=== PATIENT | male | born 1950 | race Caucasian/White ===

== ENCOUNTER 2022-11-23 08:32 | Outpatient (CLI) | payer MEDICARE | END 2022-11-23 08:33 | disposition home or self-care (01) | LOC: CSHMRI 08:32 | PROVIDERS: ATTEND Surgery | DX: M54.50 Low back pain, unspecified (principal); M47.816 Spondylosis without myelopathy or radiculopathy, lumbar region; S32.010A Wedge compression fracture of first lumbar vertebra, initial encounter for closed fracture; M47.817 Spondylosis without myelopathy or radiculopathy, lumbosacral region | CPT/HCPCS: 72100; 72148 ==

== ENCOUNTER 2022-12-15 07:22 | Outpatient (CLI) | payer MEDICARE | END 2022-12-15 07:23 | disposition home or self-care (01) | LOC: CSHCT 07:22 | PROVIDERS: ATTEND Surgery | DX: M47.27 Other spondylosis with radiculopathy, lumbosacral region (principal); M47.26 Other spondylosis with radiculopathy, lumbar region; S32.010D Wedge compression fracture of first lumbar vertebra, subsequent encounter for fracture with routine healing; M48.061 Spinal stenosis, lumbar region without neurogenic claudication; M48.07 Spinal stenosis, lumbosacral region; M43.17 Spondylolisthesis, lumbosacral region | CPT/HCPCS: 72131 ==